=== PATIENT | male | born 1995 | race American Indian/Alaskan Native ===

== ENCOUNTER 2017-01-25 04:38 | Emergency (ER) | payer OTHER ==
[2017-01-25 05:40] VITALS: BP 124/64; PULSE 78; RESP 18; TEMP 97.8; O2SAT 98
--- NOTE | 2017-01-25 05:50 | ED PDOC ---
Arrival/HPI - General Chief Complaint: ENT Problem Time Seen by Provider: 01/25/17 05:37 Historian: Patient - History of Present Illness Narrative History of Present Illness (Text): 01/25/17 05:45 A 21 year old male, whose past medical history includes ear infection several months ago, presents to the emergency department complaining of left ear pain for 2 days. Patient reports having an ear infection in the past and was given ear drops at the time. Patient denies any fever, chills, hearing changes, neck pain, drainage of ear, lymphadenopathy, or any other complaints or medical issues. No PMD Time/Duration: < week (2 days) Symptom Onset: Sudden Symptom Course: Unchanged Past Medical History - Provider Review Nursing Documentation Reviewed: Yes - Cardiac Hx Cardiac Disorders: No - Pulmonary Hx Asthma: Yes - Neurological Hx Neurological Disorder: No - HEENT Hx HEENT Disorder: No - Renal Hx Renal Disorder: No - Endocrine/Metabolic Hx Endocrine Disorders: No - Hematological/Oncological Hx Blood Disorders: No - Integumentary Hx Dermatological Disorder: No - Musculoskeletal/Rheumatological Hx Musculoskeletal Disorders: No - Gastrointestinal Hx Gastrointestinal Disorders: No - Genitourinary/Gynecological Hx Genitourinary Disorders: No - Psychiatric Hx Psychophysiologic Disorder: No Hx Substance Use: No - Anesthesia Hx Anesthesia: No Family/Social History - Physician Review Nursing Documentation Reviewed: Yes Family/Social History: No Known Family HX Smoking Status: Never Smoked Hx Alcohol Use: No Hx Substance Use: No Allergies/Home Meds Allergies/Adverse Reactions: Allergies No Known Allergies Allergy (Verified 01/25/17 05:37) Review of Systems - Physician Review All systems were reviewed & negative as marked: Yes - Review of Systems Constitutional: absent: Fevers, Night Sweats ENT: Other (left ear pain; no lymphadenopathy; no ear drainage). absent: Hearing Changes Respiratory: Normal. absent: SOB, Cough Musculoskeletal: absent: Neck Pain Physical Exam Vital Signs Reviewed: Yes Vital Signs Temp Pulse Resp BP Pulse Ox 01/25/17 05:37 97.8 F 78 18 124/64 98 Temperature: Afebrile Blood Pressure: Normal Pulse: Regular Respiratory Rate: Normal Appearance: Positive for: Well-Appearing Pain Distress: None Mental Status: Positive for: Alert and Oriented X 3 - Systems Exam Head: Present: Atraumatic, Normocephalic Pupils: Present: PERRL Extroacular Muscles: Present: EOMI Conjunctiva: Present: Normal Ears: Present: NORMAL TM (TM intact, no infection indicated). No: Normal Canal (debris to left external auditory canal), Other (no significant tenderness on ear speculum exam) Mouth: Present: Moist Mucous Membranes Neck: Present: Normal Range of Motion Respiratory/Chest: Present: Clear to Auscultation, Good Air Exchange. No: Respiratory Distress, Accessory Muscle Use Cardiovascular: Present: Regular Rate and Rhythm, Normal S1, S2. No: Murmurs Abdomen: Present: Normal Bowel Sounds. No: Tenderness, Distention, Peritoneal Signs Back: Present: Normal Inspection Upper Extremity: Present: Normal Inspection. No: Cyanosis, Edema Lower Extremity: Present: Normal Inspection. No: Edema Neurological: Present: GCS=15, CN II-XII Intact, Speech Normal Skin: Present: Warm, Dry, Normal Color. No: Rashes Psychiatric: Present: Alert, Oriented x 3, Normal Insight, Normal Concentration Medical Decision Making ED Course and Treatment: 01/25/17 05:47 Impression: 21 year old male with left ear pain. Physical exam shows debris to left external auditory canal, TM intact and no infected, no significant tenderness on ear speculum exam. Plan: -- Reassess and disposition Prior Visits: Notes and results from previous visits were reviewed. Patient was last seen in the emergency department on Progress Notes: - Medication Orders Current Medication Orders: Discontinued Medications Ibuprofen (Motrin Tab) 800 mg PO STAT STA Stop: 01/25/17 05:59 Last Admin: 01/25/17 06:06 Dose: 800 mg MAR Pain/Vitals Document 01/25/17 06:06 YP (Rec: 01/25/17 06:06 YP [id number]) Pain Reassessment Is This A Pain ReAssessment? No Sleep Is patient sleeping during reassessment? No Presence of Pain Presence of Pain Yes - Scribe Statement The provider has reviewed the documentation as recorded by the Dg Villalba Provider Scribe Attestation: All medical record entries made by the Scribe were at my direction and personally dictated by me. I have reviewed the chart and agree that the record accurately reflects my personal performance of the history, physical exam, medical decision making, and the department course for this patient. I have also personally directed, reviewed, and agree with the discharge instructions and disposition. Disposition/Present on Arrival - Present on Arrival Any Indicators Present on Arrival: No History of DVT/PE: No History of Uncontrolled Diabetes: No Urinary Catheter: No History of Decub. Ulcer: No History Surgical Site Infection Following: None - Disposition Have Diagnosis and Disposition been Completed?: Yes Diagnosis: Otitis externa Disposition: HOME/ ROUTINE Disposition Time: 06:53 Patient Plan: Discharge Condition: IMPROVED Discharge Instructions (ExitCare): Otitis Externa (ED) Prescriptions: Ciprofloxacin/Dexamethasone [Ciprodex Otic] 3 drop BID 7 Days #1 bottle Referrals: Elias Hurtado MD [Medical Doctor] - Follow up with primary Forms: [facility] ([place])
== END 2017-01-25 06:21 | disposition home or self-care (01) ==
LOC: ED 04:38
DX: H60.92 Unspecified otitis externa, left ear (principal)